=== PATIENT | female | born 2000 | race Caucasian/White ===

== ENCOUNTER 2021-06-26 14:34 | Outpatient (CLI) | payer OTHER | END 2021-06-26 14:35 | disposition home or self-care (01) | LOC: BICULT 14:34 | PROVIDERS: ATTEND Internal Medicine | DX: E06.3 Autoimmune thyroiditis (principal) | CPT/HCPCS: 76536 ==

== ENCOUNTER 2022-05-16 10:41 | Emergency (ER) | payer OTHER | END 2022-05-16 13:40 | disposition home or self-care (01) | LOC: ERS 10:41 | DX: G89.4 Chronic pain syndrome (principal); M54.2 Cervicalgia; E06.3 Autoimmune thyroiditis | CPT/HCPCS: 99283 ==